=== PATIENT | female | born 1985 | race Caucasian/White ===

== ENCOUNTER 2017-06-11 18:42 | Emergency (ER) | payer OTHER ==
[~2017-06-11] VITALS: Ht 154.9 cm; Wt 72.6 kg
[~2017-06-11 18:42] MED LIST: ALBU90OI INH; AMOX500 PO; AMPDEX10 PO; ANTOXYBENA OT; Adipex-P37.5 MG PO; Augmentin 875-1 EACH PO; BENZ100A PO; Bactrim Ds Tab1 EACH PO; CODGUAEL PO; CYCL10 PO; Cheratussin AC118 ML PO; Cyclobenzaprine5 MG PO; DEXGUASY PO; DOCU100 PO; HYDACE5325 PO; HYDGUAL120 PO; HYDR1TAB94 PO; IBUP600 PO; IBUP800 PO; METPRE4DP PO; MULVITMINE PO; Mobic15 MG PO; Mucinex D 1,201 EACH PO; NAPR500 PO; Norco 10-325 T1 EACH PO; OXYACE5T PO; PRODEXEL PO; PSEU120ER PO; Percocet 5-3251 EACH PO; Prednisone20 MG PO; Pseudoephedrine30 MG PO; RXALBOI INH; RXCYCL10 PO; RXTRAM50 PO; SULTRIDS PO; TRAM50 PO; Tussionex Penn480 ML PO; Ultram50 MG PO; Zithromax250 MG PO; Zofran4 MG PO
[2017-06-11 19:45] LABS: BASOPHILS ABSOLUTE AUTO 0.03 K/mm3 (0.00-0.23); BASOPHILS PERCENT AUTO 0 % (0-2); EOSINOPHILS ABSOLUTE AUTO 0.12 K/mm3 (0.00-0.68); EOSINOPHILS PERCENT AUTO 1 % (0-6); Hematocrit 40.6 % (33.0-51.0); IMMATURE GRAN ABSOLUTE AUTO 0.03 K/mm3 (0.00-0.10); IMMATURE GRAN PERCENT AUTO 0 % (0-1); LYMPHOCYTES ABSOLUTE AUTO 2.98 K/mm3 (0.84-5.20); LYMPHOCYTES PERCENT AUTO 25 % (21-46); MONOCYTES ABSOLUTE AUTO 0.74 K/mm3 (0.16-1.47); MONOCYTES PERCENT AUTO 6 % (4-13); Mean Corpuscular HGB 31.3 pg (26.0-34.0); Mean Corpuscular HGB Conc 34.5 g/dL (31.5-36.5); Mean Corpuscular Volume 91 fL (80-100); NEUTROPHILS PERCENT AUTO 67 % (41-73); Platelet Count 310 K/mm3 (150-400); RDW Coefficient Variation 14.2 % (11.7-14.2); RDW Standard Deviation 47.3 fL (35.1-46.3); Red Blood Cell Count 4.47 M/mm3 (3.80-5.20)
[2017-06-11 20:07] LABS: Alanine Aminotransfer (ALT/SGP 185 U/L (12-78); Albumin, Blood 3.8 g/dL (3.4-5.0); Alk Phos 103 U/L (50-136); Anion Gap 11 mmol/L (6-16); Aspartate Aminotrans (AST/SGOT 256 U/L (12-37); Bilirubin, Total 0.7 mg/dL (0.1-1.0); Blood Urea Nitrogen 7 mg/dL (8-24); Bun/Creatinine Ratio 9.4 (12.0-20.0); CO2, Blood 21 mmol/L (21-32); Calcium, Blood 8.6 mg/dL (8.5-10.1); Chloride, Blood 106 mmol/L (98-108); Creatinine, Blood 0.75 mg/dL (0.40-1.00); Glomerular Filtration Rate >60 (60-); Glucose, Blood 102 mg/dL (70-99); Potassium, Blood 3.6 mmol/L (3.5-5.5); Sodium, Blood 138 mmol/L (136-145); Total Protein, Blood 7.8 g/dL (6.4-8.2); Troponin I <0.015 ng/mL (0.000-0.040)
[2017-06-15 08:26] LABS: HCV Non Reactive (NR)
== END 2017-06-11 23:06 | disposition home or self-care (01) ==
LOC: ER 18:42
PROVIDERS: Emergency Medicine
DX: R10.11 Right upper quadrant pain (principal); R74.0 Nonspecific elevation of levels of transaminase and lactic acid dehydrogenase [LDH]; F17.200 Nicotine dependence, unspecified, uncomplicated; Z88.5 Allergy status to narcotic agent; Z91.040 Latex allergy status
CPT/HCPCS: 36415; 71020; 74177; 76705; 80053; 80074; 84484; 85025; 93005; 93010; 96361; 96374; 96375; 99284; J2270; J2405; J7030; Q9967

== ENCOUNTER → 2021-01-14 | Outpatient (CLI) | payer OTHER ==
[2021-01-16 14:11] LABS: CHLAMYDIA BY NAA Negative (Negative); GONOCOCCUS BY NAA Negative (Negative); TRICH VAG BY NAA Negative (Negative)
== END ==
LOC: LAB SHORT 12:43 → LAB 12:43
PROVIDERS: Registered Nurse Community Health
DX: Z11.3 Encounter for screening for infections with a predominantly sexual mode of transmission (principal)
CPT/HCPCS: 86803; 87491; 87591; 87661

== ENCOUNTER 2021-03-08 20:12 | Emergency (ER) | payer OTHER ==
[~2021-03-08] VITALS: Ht 154.9 cm; Wt 80.7 kg
== END 2021-03-08 21:00 | disposition home or self-care (01) ==
LOC: ER 20:12
DX: S90.32XA Contusion of left foot, initial encounter (principal); F17.210 Nicotine dependence, cigarettes, uncomplicated; Z88.5 Allergy status to narcotic agent; Z91.040 Latex allergy status; W20.8XXA Other cause of strike by thrown, projected or falling object, initial encounter
CPT/HCPCS: 73630; 96372; 99283-25; J1885

== ENCOUNTER → 2021-09-09 | Outpatient (CLI) | payer OTHER ==
[2021-09-09 14:57] LABS: BASOPHILS ABSOLUTE AUTO 0.05 K/mm3 (0.00-0.23); BASOPHILS PERCENT AUTO 1 % (0-2); EOSINOPHILS ABSOLUTE AUTO 0.19 K/mm3 (0.00-0.68); EOSINOPHILS PERCENT AUTO 2 % (0-6); Hematocrit 37.6 % (33.0-51.0); Hemoglobin 12.4 g/dL (11.5-16.0); IMMATURE GRAN ABSOLUTE AUTO 0.02 K/mm3 (0.00-0.10); IMMATURE GRAN PERCENT AUTO 0 % (0-1); LYMPHOCYTES ABSOLUTE AUTO 3.13 K/mm3 (0.84-5.20); LYMPHOCYTES PERCENT AUTO 33 % (21-46); MONOCYTES ABSOLUTE AUTO 0.54 K/mm3 (0.16-1.47); MONOCYTES PERCENT AUTO 6 % (4-13); Mean Corpuscular HGB 29.7 pg (26.0-34.0); Mean Corpuscular Volume 90 fL (80-100); NEUTROPHILS ABSOLUTE AUTO 5.47 K/mm3 (1.96-9.15); NEUTROPHILS PERCENT AUTO 58 % (41-73); Platelet Count 357 K/mm3 (150-400); RDW Coefficient Variation 14.1 % (11.7-14.2); Red Blood Cell Count 4.18 M/mm3 (3.80-5.20)
[2021-09-09 19:53] LABS: Alanine Aminotransfer (ALT/SGP 28 U/L (12-78); Albumin, Blood 3.4 g/dL (3.4-5.0); Albumin/Globulin Ratio 0.9 (0.8-1.8); Alk Phos 85 U/L (50-136); Anion Gap 8 mmol/L (6-16); Aspartate Aminotrans (AST/SGOT 19 U/L (12-37); Bilirubin, Total 0.4 mg/dL (0.1-1.0); Blood Urea Nitrogen 10 mg/dL (8-24); CHOL/HDL RATIO 3.8; CO2, Blood 25 mmol/L (21-32); Calcium, Blood 8.8 mg/dL (8.5-10.1); Chloride, Blood 107 mmol/L (98-108); Cholesterol 191 mg/dL (50-200); Creatinine, Blood 0.62 mg/dL (0.40-1.00); Globulin, Blood 3.7 g/dL (2.2-4.0); Glomerular Filtration Rate >60 (60-); Glucose, Blood 95 mg/dL (70-99); HDL Cholesterol 50 mg/dL (>39); Low Density Lipoprotein Chol 102 mg/dL (0-110); Potassium, Blood 3.9 mmol/L (3.5-5.5); Sodium, Blood 140 mmol/L (136-145); Total Protein, Blood 7.1 g/dL (6.4-8.2); Triglycerides 196 mg/dL (30-140); Very Low Density Lipoprot Chol 39 mg/dL (6-28)
== END | disposition home or self-care (01) ==
LOC: LAB SHORT 12:38
PROVIDERS: Nurse Practitioner
DX: E78.2 Mixed hyperlipidemia (principal); R42 Dizziness and giddiness
CPT/HCPCS: 80053; 80061; 84443; 85025

== ENCOUNTER 2022-10-06 11:09 | Emergency (ER) | payer OTHER ==
[~2022-10-06] VITALS: Ht 154.9 cm; Wt 74.8 kg
[2022-10-06 11:13] VITALS: BP 144/87
[2022-10-06] MEDS ORDERED: ALBU90OI INH ×2 (11:22→11:24)
[2022-10-06] MEDS ORDERED: AZIT250 PO (11:24)
[2022-10-06] MEDS ORDERED: Prednisone20 MG PO (11:24)
== END 2022-10-06 11:30 | disposition home or self-care (01) ==
LOC: ER 11:09
DX: R05.9 Cough, unspecified (principal); R09.81 Nasal congestion; R06.2 Wheezing; F17.210 Nicotine dependence, cigarettes, uncomplicated; Z88.1 Allergy status to other antibiotic agents; Z88.8 Allergy status to other drugs, medicaments and biological substances; Z91.040 Latex allergy status; Z79.899 Other long term (current) drug therapy
CPT/HCPCS: 99283

== ENCOUNTER 2023-01-18 13:46 | Emergency (ER) | payer OTHER ==
[~2023-01-18] VITALS: Ht 154.9 cm; Wt 77.1 kg
[~2023-01-18 13:46] MED LIST changes: +AZIT250 PO
[2023-01-18 13:52] VITALS: BP 141/97
[2023-01-18 14:45] LABS: Influenza A, PCR NEGATIVE (NEGATIVE); Influenza B, PCR NEGATIVE (NEGATIVE); Resp Syncytial Virus, PCR NEGATIVE (NEGATIVE); SARS-Cov-2 (COVID-19) PCR, MMC NEGATIVE (NEGATIVE)
== END 2023-01-18 15:43 | disposition home or self-care (01) ==
LOC: ER 13:46
PROVIDERS: Student in an Organized Health Care Education/Training Program
DX: J06.9 Acute upper respiratory infection, unspecified (principal); Z88.0 Allergy status to penicillin; Z88.8 Allergy status to other drugs, medicaments and biological substances; Z91.040 Latex allergy status; Z79.899 Other long term (current) drug therapy; Z79.52 Long term (current) use of systemic steroids; F17.210 Nicotine dependence, cigarettes, uncomplicated
CPT/HCPCS: 0241U; 99283

== ENCOUNTER → 2023-04-06 | Outpatient (CLI) | payer OTHER ==
[2023-04-06 18:09] LABS: BASOPHILS ABSOLUTE AUTO 0.07 K/mm3 (0.00-0.23); BASOPHILS PERCENT AUTO 1 % (0-2); EOSINOPHILS ABSOLUTE AUTO 0.14 K/mm3 (0.00-0.68); EOSINOPHILS PERCENT AUTO 1 % (0-6); Hematocrit 44.2 % (33.0-51.0); Hemoglobin 15.2 g/dL (11.5-16.0); IMMATURE GRAN ABSOLUTE AUTO 0.03 K/mm3 (0.00-0.10); IMMATURE GRAN PERCENT AUTO 0 % (0-1); LYMPHOCYTES ABSOLUTE AUTO 3.86 K/mm3 (0.84-5.20); LYMPHOCYTES PERCENT AUTO 36 % (21-46); MONOCYTES ABSOLUTE AUTO 0.44 K/mm3 (0.16-1.47); MONOCYTES PERCENT AUTO 4 % (4-13); Mean Corpuscular HGB 30.2 pg (26.0-34.0); Mean Corpuscular HGB Conc 34.4 g/dL (31.5-36.5); Mean Corpuscular Volume 88 fL (80-100); Mean Platelet Volume 9.8 fL (9.1-12.4); NEUTROPHILS ABSOLUTE AUTO 6.08 K/mm3 (1.96-9.15); NEUTROPHILS PERCENT AUTO 57 % (41-73); Platelet Count 383 K/mm3 (150-400); RDW Coefficient Variation 13.4 % (11.7-14.2); RDW Standard Deviation 42.9 fL (35.1-46.3); Red Blood Cell Count 5.04 M/mm3 (3.80-5.20); White Blood Cell Count 10.62 K/mm3 (4.00-11.30)
[2023-04-06 18:40] LABS: Alanine Aminotransfer (ALT/SGP 45 U/L (12-78); Albumin/Globulin Ratio 0.9 (0.8-1.8); Alk Phos 81 U/L (50-136); Anion Gap 6 mmol/L (6-16); Aspartate Aminotrans (AST/SGOT 18 U/L (12-37); Bilirubin, Total 0.5 mg/dL (0.1-1.0); Blood Urea Nitrogen 14 mg/dL (8-24); Bun/Creatinine Ratio 21.6 (12.0-20.0); CO2, Blood 25 mmol/L (21-32); Calcium, Blood 9.4 mg/dL (8.5-10.1); Chloride, Blood 104 mmol/L (98-108); Cholesterol 263 mg/dL (50-200); Creatinine, Blood 0.65 mg/dL (0.40-1.00); Ferritin, Serum 59 ng/mL (8-252); Globulin, Blood 4.4 g/dL (2.2-4.0); Glomerular Filtration Rate 115 (60-); Glucose, Blood 95 mg/dL (70-99); HDL Cholesterol 53 mg/dL (>39); LDL/HDL RATIO 3.2; Low Density Lipoprotein Chol 171 mg/dL (0-110); Potassium, Blood 3.8 mmol/L (3.5-5.5); Sodium, Blood 135 mmol/L (136-145); Thyroid Stimulating Hormone 0.958 uIU/mL (0.360-4.800); Total Protein, Blood 8.4 g/dL (6.4-8.2); Triglycerides 194 mg/dL (30-140); Very Low Density Lipoprot Chol 38 mg/dL (6-28)
== END | disposition home or self-care (01) ==
LOC: LAB SHORT 16:13 → LAB 16:13
PROVIDERS: Family Medicine
DX: E78.2 Mixed hyperlipidemia (principal); E66.9 Obesity, unspecified; Z68.35 Body mass index [BMI] 35.0-35.9, adult
CPT/HCPCS: 80053; 80061; 82728; 84443; 85025

== ENCOUNTER 2023-05-09 10:32 | Emergency (ER) | payer OTHER ==
[~2023-05-09] VITALS: Ht 154.9 cm; Wt 81.7 kg
[2023-05-09 10:51] VITALS: BP 132/95
[2023-05-09 12:47] LABS: Influenza A, PCR NEGATIVE (NEGATIVE); Influenza B, PCR NEGATIVE (NEGATIVE); Resp Syncytial Virus, PCR NEGATIVE (NEGATIVE); SARS-Cov-2 (COVID-19) PCR, MMC NEGATIVE (NEGATIVE)
== END 2023-05-09 12:07 | disposition home or self-care (01) ==
LOC: ER 10:32
PROVIDERS: Student in an Organized Health Care Education/Training Program
DX: J98.8 Other specified respiratory disorders (principal); B97.89 Other viral agents as the cause of diseases classified elsewhere; Z20.822 Contact with and (suspected) exposure to COVID-19; F17.210 Nicotine dependence, cigarettes, uncomplicated; Z88.0 Allergy status to penicillin; Z88.2 Allergy status to sulfonamides; Z91.040 Latex allergy status
CPT/HCPCS: 0241U; 99283

== ENCOUNTER 2024-03-21 21:08 | Emergency (ER) | payer OTHER ==
[~2024-03-21] VITALS: Ht 154.9 cm; Wt 90.7 kg
[2024-03-21 21:17] VITALS: BP 166/94
[2024-03-21 22:21] LABS: Influenza A, PCR NEGATIVE (NEGATIVE); Influenza B, PCR NEGATIVE (NEGATIVE); Resp Syncytial Virus, PCR NEGATIVE (NEGATIVE); SARS-Cov-2 (COVID-19) PCR, MMC NEGATIVE (NEGATIVE)
[2024-03-22] MEDS ORDERED: Lidocaine 4% 1 Patch TOP ONE (00:15)
[2024-03-22] MEDS ORDERED: Ketorolac Tromethamine 15mg Vial IM ONE (00:15)
[2024-03-22] MEDS ORDERED: ASPERFLEX1 EACH TOP (00:19)
== END 2024-03-22 01:20 | disposition home or self-care (01) ==
LOC: ER 21:08
PROVIDERS: Emergency Medicine
DX: J40 Bronchitis, not specified as acute or chronic (principal); R07.81 Pleurodynia; J45.909 Unspecified asthma, uncomplicated; Z79.899 Other long term (current) drug therapy; Z20.822 Contact with and (suspected) exposure to COVID-19; Z88.2 Allergy status to sulfonamides; Z88.0 Allergy status to penicillin; Z88.1 Allergy status to other antibiotic agents; Z91.040 Latex allergy status
CPT/HCPCS: 0241U; 71046; 96372; 99283-25; A9270; J1885

== ENCOUNTER 2024-04-10 11:55 | Day surgery (SDC) | payer OTHER ==
[~2024-04-10] VITALS: Ht 154.9 cm; Wt 93.4 kg
[~2024-04-10 11:55] MED LIST changes: +ASPERFLEX1 EACH TOP; +Lactated Ringer's 1,000 ML IV ONE
[2024-04-10] MEDS ORDERED: CeFAZolin Sodium 2,000 MG VIAL ONE (12:49)
[2024-04-10] MEDS ORDERED: NS 50 ML IV ONE (12:50)
[2024-04-10] MEDS ORDERED: TRAZ50 PO (13:10)
[2024-04-10] MEDS ORDERED: CYCL10 PO (13:10)
[2024-04-10] MEDS ORDERED: Lactated Ringer's 1,000 ML IV ONE (13:26)
--- NOTE | 2024-04-10 13:41 | NUR ---
04/10/24 1341 Moe Dinh, BLOCK TIMEOUT 1335 BLOCK STARTED 1336 7CC LIDOCAINE ON RT WRIST 1337 3CC LIDOCAINE ON RT PALM 1338 FINISHED AT 1338
[2024-04-10 15:32] VITALS: BP 135/76
--- NOTE | 2024-04-10 15:34 | NUR ---
04/10/24 1534 RADHA MORSE NO ANESTHESIA USED. LOCAL
== END 2024-04-10 15:25 | disposition home or self-care (01) ==
LOC: ORSCSDS 11:55
PROVIDERS: Orthopaedic Surgery
PROC: 3E0T3BZ Introduction of Anesthetic Agent into Peripheral Nerves and Plexi, Percutaneous Approach (ICD-10-PCS; 2024-04-10)
PROC: 01N50ZZ Release Median Nerve, Open Approach (ICD-10-PCS; principal; 2024-04-10 14:10)
DX: G56.03 Carpal tunnel syndrome, bilateral upper limbs (principal); M79.7 Fibromyalgia; F41.9 Anxiety disorder, unspecified; Z87.891 Personal history of nicotine dependence
CPT/HCPCS: J0690; J7120

== ENCOUNTER 2024-05-03 08:19 | Emergency (ER) | payer OTHER ==
[~2024-05-03] VITALS: Ht 154.9 cm; Wt 93.0 kg
[~2024-05-03 08:19] MED LIST changes: -Lactated Ringer's 1,000 ML IV ONE; +TRAZ50 PO
[2024-05-03 09:05] VITALS: BP 132/76
[2024-05-03] MEDS ORDERED: IBUP600 PO (09:15)
[2024-05-03] MEDS ORDERED: ACET500 PO (09:15)
== END 2024-05-03 09:32 | disposition home or self-care (01) ==
LOC: ER 08:19
DX: M79.645 Pain in left finger(s) (principal); F17.210 Nicotine dependence, cigarettes, uncomplicated; M25.442 Effusion, left hand; Z51.81 Encounter for therapeutic drug level monitoring; Z79.899 Other long term (current) drug therapy
CPT/HCPCS: 36415; 73130; 84550; 85651; 86038; 86141; 86431; 93306; 99283

== ENCOUNTER 2024-05-29 11:02 | Day surgery (SDC) | payer OTHER ==
[~2024-05-29] VITALS: Ht 154.9 cm; Wt 95.6 kg
[~2024-05-29 11:02] MED LIST changes: +ACET500 PO; +NS 500 ML IV ONE
[2024-05-29] MEDS ORDERED: NS 50 ML IV ONE (11:18)
[2024-05-29] MEDS ORDERED: CeFAZolin Sodium 2,000 MG VIAL ONE (11:18)
[2024-05-29] MEDS ORDERED: LARIN FE PO (11:37)
[2024-05-29] MEDS ORDERED: NS 500 ML IV ONE (11:47)
--- NOTE | 2024-05-29 12:08 | NUR ---
05/29/24 1208 ROJELIO TREJO TIME OUT DONE PRIOR TO LOCAL INJECTION AT [facility]. END NOTE RDS
[2024-05-29 14:39] VITALS: BP 125/78
--- NOTE | 2024-05-29 14:48 | NUR ---
05/29/24 3323 Molly Arce 1316: PATIENT REPORTED SLIGHT NASEA, BUT THAT IT IS HER "NORMAL, FROM TAKING HORMONES" SHE STATED SHE HAS "BEEN NAUSEOUS FOR WEEKS". PATIENT EXPRESSED READINESS TO GO HOME AND HAVE HER COFFEE.
== END 2024-05-29 13:46 | disposition home or self-care (01) ==
LOC: ORSCSDS 11:02
PROVIDERS: Orthopaedic Surgery
PROC: 01N50ZZ Release Median Nerve, Open Approach (ICD-10-PCS; principal; 2024-05-29 13:00)
DX: G56.02 Carpal tunnel syndrome, left upper limb (principal); F41.9 Anxiety disorder, unspecified; M79.7 Fibromyalgia; Z87.891 Personal history of nicotine dependence
CPT/HCPCS: J0690; J7040

== ENCOUNTER 2024-06-15 21:58 | Emergency (ER) | payer OTHER ==
[~2024-06-15] VITALS: Ht 154.9 cm; Wt 90.7 kg
[~2024-06-15 21:58] MED LIST changes: +LARIN FE PO; -NS 500 ML IV ONE
[2024-06-15 22:50] LABS: BASOPHILS ABSOLUTE AUTO 0.05 K/mm3 (0.00-0.23); BASOPHILS PERCENT AUTO 1 % (0-2); EOSINOPHILS ABSOLUTE AUTO 0.11 K/mm3 (0.00-0.68); EOSINOPHILS PERCENT AUTO 1 % (0-6); Hematocrit 37.7 % (33.0-51.0); Hemoglobin 12.8 g/dL (11.5-16.0); IMMATURE GRAN ABSOLUTE AUTO 0.03 K/mm3 (0.00-0.10); IMMATURE GRAN PERCENT AUTO 0 % (0-1); LYMPHOCYTES ABSOLUTE AUTO 3.93 K/mm3 (0.84-5.20); LYMPHOCYTES PERCENT AUTO 41 % (21-46); MONOCYTES PERCENT AUTO 7 % (4-13); Mean Corpuscular HGB 29.3 pg (26.0-34.0); Mean Corpuscular Volume 86 fL (80-100); Mean Platelet Volume 9.4 fL (9.1-12.4); NEUTROPHILS ABSOLUTE AUTO 4.79 K/mm3 (1.96-9.15); NEUTROPHILS PERCENT AUTO 50 % (41-73); Platelet Count 372 K/mm3 (150-400); RDW Standard Deviation 41.1 fL (35.1-46.3); Red Blood Cell Count 4.37 M/mm3 (3.80-5.20); White Blood Cell Count 9.61 K/mm3 (4.00-11.30)
[2024-06-15 23:12] LABS: Albumin, Blood 3.3 g/dL (3.4-5.0); Albumin/Globulin Ratio 0.8 (0.8-1.8); Bilirubin, Total 0.3 mg/dL (0.1-1.0); Bun/Creatinine Ratio 24.4 (12.0-20.0); Calcium, Blood 9.4 mg/dL (8.5-10.1); Creatinine, Blood 0.57 mg/dL (0.40-1.00); Globulin, Blood 4.1 g/dL (2.2-4.0); Potassium, Blood 4.1 mmol/L (3.5-5.5); Total Protein, Blood 7.4 g/dL (6.4-8.2)
[2024-06-16] MEDS ORDERED: LARIN FE PO (01:51)
[2024-06-16] MEDS ORDERED: ACYC800 PO (01:52)
[2024-06-16] MEDS ORDERED: Phentermine HCl30 MG (01:53)
[2024-06-16 02:52] LABS: Source, Urine Clean Catch
[2024-06-16 03:05] LABS: Bilirubin, Urine Neg (Neg); Blood, Urine 3+ (Neg); Glucose Qualitative, Urine Neg (Neg); Ketones, Urine Neg (Neg); Leukocyte Esterase, Urine Neg (Neg); Nitrite, Urine Neg (Neg); Protein, Urine 1+ (Neg); Specific Gravity, Urine 1.025 (1.003-1.022); Urobilinogen, Urine NORM (Normal)
[2024-06-16 03:15] LABS: Appearance, Urine Clear (Clear); Color, Urine Yellow (P-Yellow)
[2024-06-16 03:16] LABS: Bacteria Few /hpf; Red Blood Cells, Urine 0-2 /hpf (0-2); Squamous Epithelial Cells Mod /hpf (Few); White Blood Cells, Urine 0-2 /hpf (0-5)
[2024-06-16 03:32] VITALS: BP 141/74
== END 2024-06-16 03:34 | disposition home or self-care (01) ==
LOC: ER 21:58
PROVIDERS: Emergency Medicine; Physician Assistant
DX: R10.12 Left upper quadrant pain (principal); J45.909 Unspecified asthma, uncomplicated; F17.210 Nicotine dependence, cigarettes, uncomplicated; Z79.899 Other long term (current) drug therapy; Z88.2 Allergy status to sulfonamides; Z88.0 Allergy status to penicillin; Z88.1 Allergy status to other antibiotic agents; Z91.040 Latex allergy status
CPT/HCPCS: 71046; 80053; 81001; 81025; 83690; 84484; 85025; 93005; 93010; 99285-25

== ENCOUNTER → 2024-07-10 | Outpatient (CLI) | payer OTHER ==
[~2024-07-10] MED LIST changes: +ACYC800 PO; +Phentermine HCl30 MG
[2024-07-10 18:05] LABS: Adenovirus F 40/41 Not Detected (NOT DETECT); Astrovirus Not Detected (NOT DETECT); Campylobacter Sp Not Detected (NOT DETECT); Cryptosporidium Not Detected (NOT DETECT); Cyclospora Cayetanensis Not Detected (NOT DETECT); E. Coli O157 Not Detected (NOT DETECT); Entamoeba Histolytica Not Detected (NOT DETECT); Enteroaggregative E. coli-EAEC Not Detected (NOT DETECT); Enteropathogenic E. coli-EPEC Not Detected (NOT DETECT); Enterotoxigenic E. coli-ETEC Not Detected (NOT DETECT); Giardia Lamblia Not Detected (NOT DETECT); Norovirus GI/GII Not Detected (NOT DETECT); Plesiomonas Shigelloides Not Detected (NOT DETECT); Rotavirus A Not Detected (NOT DETECT); Salmonella Sp Not Detected (NOT DETECT); Sapovirus Not Detected (NOT DETECT); Shiga Toxin-prod E. coli-STEC Not Detected (NOT DETECT); Shigella/Enteroin E. coli-EIEC Not Detected (NOT DETECT); Vibrio Cholerae Not Detected (NOT DETECT); Vibrio Sp Not Detected (NOT DETECT); Yersinia Enterocolitica Not Detected (NOT DETECT)
== END | disposition home or self-care (01) ==
LOC: LAB 11:15 → LAB SHORT 11:15
PROVIDERS: Student in an Organized Health Care Education/Training Program
DX: R19.7 Diarrhea, unspecified (principal)
CPT/HCPCS: 87507

== ENCOUNTER → 2024-10-10 | Outpatient (CLI) | payer OTHER ==
[2024-10-10 18:31] LABS: Adenovirus Not Detected (NOT DETECT); Bordetella pertussis Not Detected (NOT DETECT); Chlamydophila pneumoniae Not Detected (NOT DETECT); Coronavirus 229E Not Detected (NOT DETECT); Coronavirus HKU1 Not Detected (NOT DETECT); Coronavirus NL63 Not Detected (NOT DETECT); Coronavirus OC43 Not Detected (NOT DETECT); Human Metapneumovirus Not Detected (NOT DETECT); Human Rhinovirus/Enterovirus Not Detected (NOT DETECT); Influenza A/2009-H1 Not Detected (NOT DETECT); Influenza A/H1 Not Detected (NOT DETECT); Influenza A/H3 Not Detected (NOT DETECT); Influenza B Not Detected (NOT DETECT); Mycoplasma pneumoniae Not Detected (NOT DETECT); Parainfluenza Virus 1 Not Detected (NOT DETECT); Parainfluenza Virus 2 Not Detected (NOT DETECT); Parainfluenza Virus 3 Not Detected (NOT DETECT); Parainfluenza Virus 4 Not Detected (NOT DETECT); Respiratory Syncytial Virus Not Detected (NOT DETECT); SARS-Cov-2 (COVID-19), BioFire Not Detected (NOT DETECT)
== END | disposition home or self-care (01) ==
LOC: LAB 15:51 → LAB SHORT 15:51
PROVIDERS: Student in an Organized Health Care Education/Training Program
DX: J06.9 Acute upper respiratory infection, unspecified (principal)
CPT/HCPCS: 0202U

== ENCOUNTER → 2025-01-02 | Outpatient (CLI) | payer OTHER ==
[2025-01-03 12:49] LABS: Bacterial Vaginosis PCR Negative (NEGATIVE); Candida Group, PCR NOT DETECTED (NOT DETECT); Candida glabrata-krusei, PCR NOT DETECTED (NOT DETECT)
== END ==
LOC: LAB 19:22 → LAB SHORT 19:22
PROVIDERS: Student in an Organized Health Care Education/Training Program
DX: R30.0 Dysuria (principal); N89.8 Other specified noninflammatory disorders of vagina
CPT/HCPCS: 81515; 87086

== ENCOUNTER 2025-02-20 02:15 | Day surgery (SDC) | payer OTHER ==
[2025-02-20] MEDS ORDERED: NS 1,000 ML IV SCH (06:55)
[2025-02-20] MEDS ORDERED: PANT40 PO (14:16)
[2025-02-20] MEDS ORDERED: URSO300 PO (14:16)
[2025-02-20 14:21] VITALS: BP 109/70
== END 2025-02-20 16:22 | disposition home or self-care (01) ==
LOC: ATC 02:15
DX: E86.0 Dehydration (principal); J45.909 Unspecified asthma, uncomplicated; K76.0 Fatty (change of) liver, not elsewhere classified; G47.33 Obstructive sleep apnea (adult) (pediatric); E66.812 Obesity, class 2; Z68.37 Body mass index [BMI] 37.0-37.9, adult; Z87.891 Personal history of nicotine dependence; Z79.899 Other long term (current) drug therapy; Z88.5 Allergy status to narcotic agent; Z91.040 Latex allergy status; Z91.09 Other allergy status, other than to drugs and biological substances; Z90.3 Acquired absence of stomach [part of]
CPT/HCPCS: 96360; 96361; J7030